=== PATIENT | male | born 1975 | race Hispanic/Latino ===

== ENCOUNTER 2017-10-21 10:03 | Emergency (ER) | payer SELFPAY ==
--- NOTE | 2017-10-21 12:10 | RAD ---
THREE VIEWS RIGHT ANKLE: 10/21/2017 COMPARISON: None. HISTORY: Ankle pain. FINDINGS: There is evidence of prior fracture status post surgical correction, with two screws traversing the m edial malleolus and two screws overlying the calcaneus. There is enthesophyte formation at the inser tion of the Achilles tendon and origin of the plantar aponeurosis. There is degenerative change invo lving the tibiotalar articulation and the subtalar joint with joint space narrowing and osteophyte fo rmation. Corticated osseous fragments are noted adjacent to the tip of the medial malleolus and late ral malleolus. No acute fracture or dislocation. IMPRESSION: Postoperative and degenerative change. No acute fracture or dislocation. POS: [facility]
[2017-10-21] MEDS ORDERED: Ibuprofen 800 MG TAB ONE (12:24)
== END 2017-10-21 12:31 | disposition home or self-care (01) ==
LOC: ERS 10:03
DX: S93.401A Sprain of unspecified ligament of right ankle, initial encounter (principal); F17.210 Nicotine dependence, cigarettes, uncomplicated; Z71.6 Tobacco abuse counseling; X50.1XXA Overexertion from prolonged static or awkward postures, initial encounter
CPT/HCPCS: 99406

== ENCOUNTER 2017-10-28 17:28 | Observation (INO) | payer SELFPAY ==
[2017-10-28 18:18] LABS: #Basophils 0.1 thou/uL (0.0-0.2); #Eosinphils 0.2 thou/uL (0.0-0.7); #Monocytes 0.6 thou/uL (0.11-0.59); #Neutrophils 3.8 thou/uL (1.40-6.50); %Basophils 1.1 % (0.0-1.0); %Eosinophils 3.3 % (0.0-10.0); %Lymphocytes 30.3 % (21.0-51.0); %Monocytes 9.4 % (0.0-10.0); Hemoglobin 17.9 g/dL (14.0-18.0); Mean Corpuscular HGB CONC 34.4 g/dL (32.0-36.0); Mean Corpuscular Hemoglobin 32.3 pg (27.0-31.0); Mean Corpuscular Volume 93.8 fl (80.0-94.0); Mean Platelet Volume 7.8 fL (7.4-10.4); Platelet Count 216 thou/uL (130-400); RBC Distribution Width 12.6 % (11.5-14.5); Red Blood Cell (RBC) Count 5.55 mill/uL (4.70-6.10); White Blood Cell (WBC) Count 6.7 thou/uL (4.8-10.8)
[2017-10-28 18:40] LABS: ALT (SGPT) 32 U/L (8-55); AST (SGOT) 21 U/L (5-34); Albumin 4.2 g/dL (3.5-5.0); Alkaline Phosphatase 84 U/L (40-150); Anion Gap 12 mmol/L (10-20); BUN (Urea Nitrogen) 11 mg/dL (8.9-20.6); Bilirubin, Total 1.2 mg/dL (0.2-1.2); CK (CPK) 187 U/L (30-200); Calc. Creatinine Clearance 0 mL/min (70-130); Calcium 9.1 mg/dL (7.8-10.44); Carbon Dioxide 27 mmol/L (22-29); Chloride 101 mmol/L (98-107); Estimated GFR-MDRD Greater than 90; Glucose 115 mg/dL (70-105); Lipase 18 U/L (8-78); Potassium 3.7 mmol/L (3.5-5.1); Protein, Total 7.2 g/dL (6.0-8.3); Sodium 136 mmol/L (136-145)
[2017-10-28 18:43] LABS: CKMB 1.4 ng/mL (0-6.6); Troponin I 0.015 ng/mL (< 0.028)
--- NOTE | 2017-10-28 19:07 | RAD ---
PA CHEST: HISTORY: Chest pain. FINDINGS: The lungs are well aerated and clear. No infiltrate or vascular congestion. The heart size is simi l. IMPRESSION: Unremarkable PA chest. POS: [facility]
[2017-10-28] MEDS ORDERED: Nitroglycerin 0.4 MG TAB (25 Tab Bottle) ONE (19:59)
[2017-10-28] MEDS ORDERED: Acetaminophen 500 MG TAB ONE (19:59)
[2017-10-28 22:40] VITALS: BMI 34.4
[2017-10-28 22:54] LABS: Troponin I Less than 0.010 ng/mL (< 0.028)
[2017-10-29 01:30] LABS: Troponin I Less than 0.010 ng/mL (< 0.028)
[2017-10-29] MEDS ORDERED: Acetaminophen 325 MG TAB PO PRN (01:30)
[2017-10-29] MEDS ORDERED: Enoxaparin Sodium 40 MG/0.4 ML SYRINGE SC SCH (01:30)
[2017-10-29] MEDS ORDERED: Famotidine 20 MG TAB PO SCH ×2 (01:30→09:00)
[2017-10-29] MEDS ORDERED: Ondansetron ODT 4 MG TAB PO PRN (01:30)
[2017-10-29] MEDS ORDERED: Ondansetron HCl/PF 4 MG/2 ML Vial IVP PRN (01:30)
[2017-10-29] MEDS ORDERED: HYDROcodone/Acetaminophen 5/325 mg Tablet PO PRN (01:30)
[2017-10-29] MEDS: Nitroglycerin 2% Ointment 1 INCH/1 GM Packet TOP SCH ×2 (01:52→11:16)
[2017-10-29 05:32] LABS: #Eosinphils 0.3 thou/uL (0.0-0.7); #Monocytes 0.5 thou/uL (0.11-0.59); #Neutrophils 2.1 thou/uL (1.40-6.50); %Basophils 0.9 % (0.0-1.0); %Eosinophils 5.1 % (0.0-10.0); %Monocytes 10.9 % (0.0-10.0); %Neutrophils 43.1 % (42.0-75.0); Hemoglobin 16.9 g/dL (14.0-18.0); Mean Corpuscular HGB CONC 35.2 g/dL (32.0-36.0); Mean Corpuscular Hemoglobin 32.5 pg (27.0-31.0); Mean Corpuscular Volume 92.3 fl (80.0-94.0); Mean Platelet Volume 7.9 fL (7.4-10.4); Platelet Count 188 thou/uL (130-400); RBC Distribution Width 12.6 % (11.5-14.5)
--- NOTE | 2017-10-29 05:48 | HP ---
DATE OF ADMISSION: 10/28/2017 TIME OF SERVICE: 2340 hours. PRIMARY CARE PHYSICIAN: None. CHIEF COMPLAINT: Chest pain. HISTORY OF PRESENT ILLNESS: Ms. Cortez is a 41-year-old Latin-[place] male with no known past me dical history who presents to the emergency department for evaluation of chest pain. Patient has had episodes over the last 4 months that have been very intermittent. He describes them as a left-sided substernal pressure that seems to come and go. He has noted no known exacerbating or alleviating factors. He has not had any movement of that pain. Today, he woke around 0600 hours and all day has had pain in the left chest that again feels like a p ressure or squeezing sensation as going to his left upper extremity. Today, has some finger tingling and lasted from the time that he woke up until he received nitroglycerin in the ER and all of the sy mptoms resolved. A workup was negative and we were called for further workup and evaluation. He denies any fevers or chills. He did have nausea when the pain began, but no vomiting. No diarrhe a, or constipation. He has had a cough off and on for several months with the seasonal allergies. N o shortness of breath and no palpitations. In the emergency department, biomarkers were unremarkable. EKG was normal. Chest x-ray was unremark able. We were called for admission. PAST MEDICAL HISTORY: None. PAST SURGICAL HISTORY: Includes; 1. Left jaw plate. 2. Left femur david. 3. Right arm david. 4. Left ankle pins x4. HOME MEDICATIONS: None. ALLERGIES: NKDA. REVIEW OF SYSTEMS: Significant for right lateral abdominal pain, but no GI bleeding. Pain comes and goes, intermittent, like his chest pain. FAMILY HISTORY: Significant for no members with coronary artery disease. His dad did have a cancer of unknown type, but is still alive in his late 60s to early 70s. He has a sister who has a congenit al murmur, but no other known medical issues along with history of diabetes and hypertension, is eduardo hudson, he is not sure how old she is. SOCIAL HISTORY: Significant for tobacco about 1/2 pack per weekend. Does drink social alcohol, maygabriela e 8 drinks over the weekend about 16 ounces beers. There is no history of IV drug use. He works as a packing tractor machine operator and is the significant other, one of our hospital workers here. PHYSICAL EXAMINATION: VITAL SIGNS: Temperature 98.5, pulse 109, blood pressure 155/113, respiratory 20, satting 97% on tristan m air. GENERAL: He is awake. He is alert. He is oriented x3, well-developed, well-nourished [place] n male appears to be in no distress. HEENT: Normocephalic, atraumatic. Pupils are equal, round, reactive to light bilaterally, mucous me mbranes are moist. He has normal mucous membranes. There are no lesions. Extraocular muscles are i ntact. NECK: Supple without lymphadenopathy, JVD, or thyromegaly. No carotid upstrokes. There are no brui ts. Neck has good range of motion. LUNGS: Clear to auscultation bilaterally. Good air movement. Symmetrical chest excursion. There a re no wheezes, no rales, no rhonchi. No prolonged expiratory phase. CARDIOVASCULAR: He is tachycardic, but regular. Normal S1 and S2. No S3 or S4. No audible murmurs . PMI is normal size and nondisplaced. ABDOMEN: Obese, nontender, nondistended. No hepatosplenomegaly. There is no rebound, rigidity, or guarding. Normoactive bowel sounds present in all 4 quadrants. Patient does have a Chávez's sign. We stopped his respiratory effort due to discomfort with deep inspiration. EXTREMITIES: No cyanosis, no clubbing, no edema. He has 2+ peripheral pulses in the dorsalis pedis, posterior tibial, and radial arteries bilaterally. SKIN: Warm, moist, and well perfused. He has multiple tattoos, but no rashes or lesions. NEUROLOGIC: Cranial nerves II through XII are grossly intact without any focal neurologic deficit. He has normal speech pattern, 5/5 strength in all 4 of his extremities. He has no coordination issue s. His gait is normal. MUSCULOSKELETAL: Normal to inspection. Large joints appeared normal. There is no inflammation. Go od range of motion and no palpable effusions. LABORATORY AND DIAGNOSTIC DATA: Sodium 136, potassium 3.7, chloride 101, bicarb 27, BUN 11, creatini ne 0.84, and glucose 115. Liver functions are completely within normal limits. CBC showed a white c ount of 6.7, hemoglobin 17.9, hematocrit of 52.1, and platelet count is 216,000. CK-MB is normal at 1.4 and troponin I was 0.015 with repeat of less than 0.010. Chest x-ray showed no acute cardiopulmo nary disease. ASSESSMENT AND PLAN: 1. Chest pain. I feel this is at low risk. He has no comorbid factors, he has no family history, n egative EKG, and normal biomarkers. We will get one more set and get a nuclear stress test to comple tely exclude. 2. Right upper quadrant pain: The patient did have a Chávez sign. We will get an abnormal liver fu nctions. We will get an abdominal ultrasound. 3. Elevated blood pressure. Patient is anxious about being here. He will be getting nitro paste an yways. We will watch his blood pressure closely and watch him on telemetry. 4. Tobacco abuse. The patient does smoke a half pack per weekend. We will do tobacco counseling. I did encourage him to quit.
[2017-10-29 05:52] LABS: CKMB 1.2 ng/mL (0-6.6); Troponin I Less than 0.010 ng/mL (< 0.028)
[2017-10-29 05:58] LABS: ALT (SGPT) 27 U/L (8-55); AST (SGOT) 17 U/L (5-34); Albumin 3.7 g/dL (3.5-5.0); Alkaline Phosphatase 71 U/L (40-150); Anion Gap 11 mmol/L (10-20); BUN (Urea Nitrogen) 12 mg/dL (8.9-20.6); Bilirubin, Total 1.3 mg/dL (0.2-1.2); Calc. Creatinine Clearance 173 mL/min (70-130); Calcium 8.6 mg/dL (7.8-10.44); Carbon Dioxide 26 mmol/L (22-29); Cardiac Risk 4.6 (Less than 4.5); Chloride 101 mmol/L (98-107); Cholesterol 174 mg/dl (< 200 Desired); Estimated GFR-MDRD Greater than 90; Globulin 2.4 g/dL (2.4-3.5); Glucose 87 mg/dL (70-105); HDL Cholesterol 38 mg/dL (>60 Neg Risk); LDL Cholesterol, Calculated 94 mg/dL; Potassium 3.5 mmol/L (3.5-5.1); Protein, Total 6.1 g/dL (6.0-8.3); Sodium 134 mmol/L (136-145); Triglycerides 209 mg/dL (Less than 150)
--- NOTE | 2017-10-29 07:59 | ULT ---
GALLBLADDER ULTRASOUND: History: Chest pain. Comparison: None. Technique: Utilizing a multihertz transducer, sonographic imaging of the right upper quadrant was per formed in the longitudinal and transverse plane. FINDINGS: Hepatic parenchyma has a normal echotexture. No hepatic masses or intrahepatic biliary dilatation. Th e contour of the hepatic margin is maintained. Right hepatic lobe measures 17.3 cm. Pancreas is poorly defined due to overlying bowel gas. Grossly, the head and proximal pancreatic body has a normal echotexture. Main portal vein is patent. Appropriate direction of flow. Right kidney has a normal cortical echotexture. No hydronephrosis. Right kidney measures 10.5 x 4.3 x 4.4 cm. In the gallbladder, there are small stones in the neck of the gallbladder. Gallbladder wall is not th ickened. No pericholecystic fluid. Negative Chávez's sign. Common bile duct diameter is 0.4 cm. IMPRESSION: Sonographic evidence of cholelithiasis without evidence of cholecystitis. POS: [facility]
[2017-10-29] MEDS ORDERED: Aspirin 325 mg Enteric Coated Tablet PO SCH (09:00)
--- NOTE | 2017-10-29 09:50 | PDOC.EVN ---
Event Note - Event Note Event Note: 41 M admitted for chest and RUQ pain. Work up for chest pain negative so far. Abdominal US shows cholelithiasis withoug evidence of cholecystitis. Exercise stress test scheduled. If negative and pain well controlled, will be discharged and referred to General Surgery for outpatient elective LAP cholecystectomy.
--- NOTE | 2017-10-29 12:20 | NM ---
NUCLEAR MEDICINE CARDIAC PERFUSION EXAMINATION WITH EJECTION FRACTION: HISTORY: 41-year-old male with chest pain. Patient is a smoker. TECHNIQUE: A nuclear medicine cardiac stress test was performed. Rest images were obtained using 11.1 mCi of alexis hnetium-99m sestamibi. Stress images were obtained using 31.9 mCi of technetium-99m sestamibi and Dayana nosine. FINDINGS: Tomographic images show no fixed or reversible perfusion defects. Gated images show normal wall motio n with an ejection fraction of 68% EDV: 102 ml LHR: 0.4 TID: 1.15 IMPRESSION: No evidence of ischemia. POS: [facility]
[2017-10-29 12:56] LABS: CKMB 1.2 ng/mL (0-6.6); Troponin I Less than 0.010 ng/mL (< 0.028)
[2017-10-29 15:43] VITALS: BP 136/72; TEMP 97.9
[2017-10-29] MEDS ORDERED: ADENOSINE 60 MG/20 ML VIAL ONE (16:43)
--- NOTE | 2017-10-30 01:47 | DIS ---
DATE OF ADMISSION: 10/28/2017 DATE OF DISCHARGE: 10/29/2017 DISCHARGE DIAGNOSES: 1. Noncardiac chest pain. 2. Hyperlipidemia. 3. Cholelithiasis. HOSPITAL COURSE/HISTORY OF PRESENT ILLNESS: Mr. Cortez is a 41-year-old male with no previous pas t medical history who presented to the emergency room for chest pain, which has been intermittent for the past 4 months, described it as left-sided substernal chest pain/pressure. There was no aggravat ing or alleviating factors. No pleuritic in nature. At around 6:00 a.m. on the day of presentation, he had pain and decided to present to the hospital as he felt it radiated to his left upper extremit y and had some tingling of his fingers. He received nitroglycerin in the emergency room with resolut ion of his pain. Workup was negative in the emergency room and Internal Medicine was consulted to fu rther evaluate his pain. His troponin was trended and was negative. He had a stress test, which was also negative. In addition, he complained of right upper quadrant pain and an ultrasound was done s howed cholelithiasis without evidence of cholecystitis. He had no leukocytosis, fever, or any other suggestion of cholecystitis. His chest pain resolved as well as his abdominal pain. He was instruct ed to follow up with his primary care physician within 1 week of discharge for blood pressure check a nd repeat labs. He is also to get a referral to General Surgery for possible elective cholecystectom y. His lipid profile revealed elevated triglycerides and he was started on lovastatin before dischar ge. DISCHARGE MEDICATIONS: Lovastatin 20 mg daily. PHYSICAL EXAMINATION: He was examined on the day of discharge. VITAL SIGNS: Temperature 97.9 degree Fahrenheit, pulse rate 64, respiratory rate 20, oxygen saturati on 96% on room air, blood pressure 136/72. GENERAL: Not in acute distress, lying comfortably in bed. HEENT: Normocephalic, atraumatic. Not pale, anicteric. Moist mucous membranes. Respiratory vesicu lar breath sounds bilaterally, no wheezes or rales. CARDIOVASCULAR: Regular rate and rhythm, S1 and S2 only. No murmurs, rubs, or gallops. ABDOMEN: Soft, nontender, nondistended. Bowel sounds present. No organomegaly. MUSCULOSKELETAL: No edema. SKIN: Warm, dry, well-perfused. No rashes or lesions. PSYCHIATRIC: Normal mood and affect. NEUROLOGIC: Alert and well oriented to time, place and person. No focal deficits. SIGNIFICANT LABORATORY DATA: Sodium 134, potassium 3.5, chloride 101, carbon dioxide 26, anion gap 1 1, BUN 12, creatinine 0.7, glucose 87, calcium 8.6. Hematology: WBC 5.0, hemoglobin 16.9, platelet count 188. IMAGING: Chest x-ray unremarkable. Nuclear stress test, no reversible ischemia. Abdomen ultrasonog raphic evidence of cholelithiasis without evidence of cholecystitis. PROCEDURES: Stress test. CONSULTS: None. CONDITION AT DISCHARGE: Stable and improved. DIET: Heart healthy. ACTIVITY: To resume as tolerated. CARE GOALS: Advised to follow up with primary care physician within 1 week of discharge. He is also to get an appointment to General Surgery for possible elective cholecystectomy. Discharge time 65 minutes including chart review and documentation.
--- NOTE | 2017-11-03 00:26 | EKG ---
Test Reason : Blood Pressure : / mmHG Vent. Rate : 110 BPM Atrial Rate : 110 BPM P-R Int : 154 ms QRS Dur : 096 ms QT Int : 316 ms P-R-T Axes : 058 -26 050 degrees QTc Int : 427 ms Sinus tachycardia Otherwise normal ECG Confirmed by ANDREW JARRELL ([id number]), movie editor JUSTEN ESCOBAR ([id number] on 11/03/2017 12:25:14 AM Referred By: Confirmed By:ANDREW JARRELL
== END 2017-10-29 18:14 | disposition home or self-care (01) ==
LOC: ERS 17:28 → 2SW 21:39
PROVIDERS: ADMIT Internal Medicine Infectious Disease; ATTEND Internal Medicine Infectious Disease
DX: R07.89 Other chest pain (principal); E78.5 Hyperlipidemia, unspecified; K80.20 Calculus of gallbladder without cholecystitis without obstruction; F17.210 Nicotine dependence, cigarettes, uncomplicated; R10.11 Right upper quadrant pain; R03.0 Elevated blood-pressure reading, without diagnosis of hypertension; Z98.890 Other specified postprocedural states
CPT/HCPCS: 36415; 71045; 76705; 78452; 80053; 80061; 82550; 82553; 83690; 84484; 85025; 93005; 93017; 96372; 99406; A9500; G0378; J0153; J1650

== ENCOUNTER 2018-07-15 08:09 | Emergency (ER) | payer OTHER, SELFPAY ==
[2018-07-15] MEDS ORDERED: Ondansetron ODT 8 MG TAB ONE (08:19)
[2018-07-15 10:36] LABS: #Basophils 0.1 thou/uL (0.0-0.2); #Eosinphils 0.2 thou/uL (0.0-0.7); #Lymphocytes 1.1 thou/uL (1.20-3.40); #Monocytes 0.5 thou/uL (0.11-0.59); #Neutrophils 2.7 thou/uL (1.40-6.50); %Basophils 1.5 % (0.0-1.0); %Eosinophils 3.4 % (0.0-10.0); %Lymphocytes 23.5 % (21.0-51.0); %Monocytes 11.7 % (0.0-10.0); %Neutrophils 59.8 % (42.0-75.0); Hemoglobin 18.9 g/dL (14.0-18.0); Mean Corpuscular HGB CONC 34.5 g/dL (32.0-36.0); Mean Corpuscular Volume 95.8 fL (78.0-98.0); Mean Platelet Volume 8.2 fL (7.4-10.4); Platelet Count 195 thou/uL (130-400); RBC Distribution Width 12.2 % (11.5-14.5); Red Blood Cell (RBC) Count 5.71 mill/uL (4.70-6.10); White Blood Cell (WBC) Count 4.5 thou/uL (4.8-10.8)
[2018-07-15 10:52] LABS: ALT (SGPT) 28 U/L (8-55); AST (SGOT) 32 U/L (5-34); Albumin 4.2 g/dL (3.5-5.0); Alkaline Phosphatase 84 U/L (40-150); Anion Gap 12 mmol/L (10-20); BUN (Urea Nitrogen) 8 mg/dL (8.9-20.6); Calc. Creatinine Clearance 0 mL/min (70-130); Calcium 9.8 mg/dL (7.8-10.44); Carbon Dioxide 25 mmol/L (22-29); Chloride 98 mmol/L (98-107); Estimated GFR-MDRD Greater than 90; Globulin 3.1 g/dL (2.4-3.5); Glucose 93 mg/dL (70-105); Potassium 4.1 mmol/L (3.5-5.1); Protein, Total 7.3 g/dL (6.0-8.3); Sodium 131 mmol/L (136-145)
== END 2018-07-15 11:37 | disposition home or self-care (01) ==
LOC: ERS 08:09
DX: K52.9 Noninfective gastroenteritis and colitis, unspecified (principal); F17.210 Nicotine dependence, cigarettes, uncomplicated
CPT/HCPCS: 36415; 80053; 85025; 99284

== ENCOUNTER 2018-07-22 11:34 | Emergency (ER) | payer OTHER ==
[~2018-07-22 11:34] MED LIST: Iopamidol 370 76% 100 ML VIAL ONE
[2018-07-22] MEDS ORDERED: Dicyclomine 20 MG TAB ONE (11:57)
[2018-07-22 12:20] LABS: Band 1 % (5-11); Eosinophils 3 % (0-10); Hemoglobin 17.3 g/dL (14.0-18.0); Lymphocytes 18 % (21-51); MDiff Complete? YES; Mean Corpuscular HGB CONC 33.7 g/dL (32.0-36.0); Mean Corpuscular Hemoglobin 31.3 pg (27.0-31.0); Mean Corpuscular Volume 92.8 fL (78.0-98.0); Mean Platelet Volume 9.9 fL (7.4-10.4); Monocytes 7 % (0-10); Neutrophil 62 % (42-75); PLT Morphology Comment Appears Adequate; Platelet Count 164 thou/uL (130-400); RBC Distribution Width 10.9 % (11.5-14.5); Reactive Lymphocytes 8 % (0-10); Red Blood Cell (RBC) Count 5.53 mill/uL (4.70-6.10); White Blood Cell (WBC) Count 4.9 thou/uL (4.8-10.8)
[2018-07-22 12:27] LABS: ALT (SGPT) 36 U/L (8-55); AST (SGOT) 20 U/L (5-34); Albumin 3.9 g/dL (3.5-5.0); Alkaline Phosphatase 75 U/L (40-150); Anion Gap 14 mmol/L (10-20); BUN (Urea Nitrogen) 6 mg/dL (8.9-20.6); Calc. Creatinine Clearance 0 mL/min (70-130); Calcium 8.8 mg/dL (7.8-10.44); Carbon Dioxide 24 mmol/L (22-29); Chloride 103 mmol/L (98-107); Estimated GFR-MDRD Greater than 90; Globulin 2.6 g/dL (2.4-3.5); Glucose 114 mg/dL (70-105); Lipase 19 U/L (8-78); Potassium 3.7 mmol/L (3.5-5.1); Protein, Total 6.5 g/dL (6.0-8.3); Sodium 137 mmol/L (136-145)
[2018-07-22 13:09] LABS: Bilirubin Negative (Negative); Blood, Urine Negative (Negative); Clarity Clear (Clear); Glucose, Urine (Dipstick) 250 mg/dL (Negative); Leukocyte Negative (Negative); Nitrite Negative (Negative); Protein, Urine (Dipstick) Negative (Neg-Trace); Urobilinogen 0.2 mg/dL (0.2-1.0); pH, Urine 7.5 (5.0-9.0)
--- NOTE | 2018-07-22 14:24 | CT ---
CT ABDOMEN AND PELVIS WITH IV CONTRAST: Date: 07/22/18 HISTORY: Right-sided abdominal pain. FINDINGS: Lung bases are clear. The liver, spleen, pancreas, adrenal glands, and kidneys are normal. No calcifi ed gallstones are seen. No free air, free fluid, or lymphadenopathy is noted in the abdomen or pelvis . There are small bilateral inguinal herniae. The small bowel loops are not abnormally dilated. A nor mal appearing appendix is seen. There are postop changes and metallic hardware in the left proximal f emur. IMPRESSION: No acute process. POS: [facility]
== END 2018-07-22 13:55 | disposition home or self-care (01) ==
LOC: SCSER 11:34
DX: R10.11 Right upper quadrant pain (principal); F17.210 Nicotine dependence, cigarettes, uncomplicated
CPT/HCPCS: 74177; 80053; 81003; 83690; 85025

== ENCOUNTER 2021-01-17 04:29 | Emergency (ER) | payer SELFPAY ==
[2021-01-17] MEDS ORDERED: Dexamethasone 10 MG/ML VIAL ONE (06:58)
[2021-01-17] MEDS ORDERED: Famotidine/PF 20 mg/2ml Vial ONE ×2 (07:10→07:21)
[2021-01-17] MEDS ORDERED: diphenhydrAMINE 50 MG/ML VIAL ONE (07:10)
[2021-01-17] MEDS ORDERED: Aspirin Chewable 81 MG TAB ONE (07:20)
[2021-01-17 07:41] LABS: #Eosinphils 0.2 thou/uL (0.0-0.7); #Lymphocytes 1.4 thou/uL (1.20-3.40); #Monocytes 0.5 thou/uL (0.11-0.59); #Neutrophils 3.7 thou/uL (1.40-6.50); %Basophils 0.7 % (0.0-1.0); %Eosinophils 3.2 % (0.0-10.0); %Lymphocytes 24.3 % (21.0-51.0); %Neutrophils 62.9 % (42.0-75.0); Hemoglobin 16.9 g/dL (14.0-18.0); Mean Corpuscular HGB CONC 33.8 g/dL (32.0-36.0); Mean Corpuscular Hemoglobin 32.4 pg (27.0-31.0); Mean Corpuscular Volume 95.8 fL (78.0-98.0); Mean Platelet Volume 8.1 fL (7.4-10.4); Platelet Count 209 thou/uL (130-400); RBC Distribution Width 11.9 % (11.5-14.5); Red Blood Cell (RBC) Count 5.23 mill/uL (4.70-6.10); White Blood Cell (WBC) Count 5.9 thou/uL (4.8-10.8)
[2021-01-17 08:05] LABS: ALT (SGPT) 52 U/L (8-55); AST (SGOT) 27 U/L (5-34); Alkaline Phosphatase 98 U/L (40-110); Anion Gap 13 mmol/L (10-20); BUN (Urea Nitrogen) 6 mg/dL (8.9-20.6); Bilirubin, Total 0.7 mg/dL (0.2-1.2); Calc. Creatinine Clearance 0 mL/min (70-130); Calcium 9.7 mg/dL (7.8-10.44); Carbon Dioxide 26 mmol/L (22-29); Chloride 98 mmol/L (98-107); Globulin 3.5 g/dL (2.4-3.5); Glucose 130 mg/dL (70-105); Potassium 3.6 mmol/L (3.5-5.1); Protein, Total 7.5 g/dL (6.0-8.3); Sodium 133 mmol/L (136-145)
[2021-01-17] MEDS ORDERED: Lorazepam 2 MG/ML VIAL ONE (09:06)
[2021-01-17] MEDS ORDERED: Iopamidol-370 76% 500 ML 1 ML ONE (09:42)
== END 2021-01-17 10:54 | disposition home or self-care (01) ==
LOC: ERS 04:29
DX: T78.40XA Allergy, unspecified, initial encounter (principal); I10 Essential (primary) hypertension; R06.02 Shortness of breath; Z86.73 Personal history of transient ischemic attack (TIA), and cerebral infarction without residual deficits; F17.210 Nicotine dependence, cigarettes, uncomplicated
CPT/HCPCS: 70491; 71045; 80053; 83880; 84484; 85025; 87081; 87430; 93005; 96374; 96375; J1100; J1200; J2060; Q9967; S0028

== ENCOUNTER 2021-01-30 21:57 | Emergency (ER) | payer SELFPAY ==
[2021-01-30] MEDS ORDERED: diphenhydrAMINE 50 MG/ML VIAL ONE (22:37)
== END 2021-01-30 23:29 | disposition home or self-care (01) ==
LOC: ERS 21:57
DX: R60.0 Localized edema (principal); T78.1XXA Other adverse food reactions, not elsewhere classified, initial encounter; F17.210 Nicotine dependence, cigarettes, uncomplicated; Z86.73 Personal history of transient ischemic attack (TIA), and cerebral infarction without residual deficits; Z79.52 Long term (current) use of systemic steroids; Z79.899 Other long term (current) drug therapy
CPT/HCPCS: 96372; 99283; J1200

== ENCOUNTER 2021-06-13 01:10 | Emergency (ER) | payer OTHER ==
[2021-06-13] MEDS ORDERED: Aspirin 81 mg Enteric Coated Tablet ONE (01:53)
[2021-06-13 01:58] LABS: #Eosinphils 0.1 thou/uL (0.0-0.7); #Lymphocytes 1.4 thou/uL (1.20-3.40); #Monocytes 0.7 thou/uL (0.11-0.59); #Neutrophils 3.4 thou/uL (1.40-6.50); %Basophils 0.4 % (0.0-1.0); %Eosinophils 1.4 % (0.0-10.0); %Lymphocytes 25.1 % (21.0-51.0); %Monocytes 12.5 % (0.0-10.0); %Neutrophils 60.6 % (42.0-75.0); Mean Corpuscular HGB CONC 35.8 g/dL (32.0-36.0); Mean Corpuscular Hemoglobin 33.4 pg (27.0-31.0); Mean Corpuscular Volume 93.3 fL (78.0-98.0); Mean Platelet Volume 7.9 fL (7.4-10.4); Platelet Count 194 thou/uL (130-400); RBC Distribution Width 11.7 % (11.5-14.5); Red Blood Cell (RBC) Count 5.09 mill/uL (4.70-6.10); White Blood Cell (WBC) Count 5.6 thou/uL (4.8-10.8)
[2021-06-13 02:15] LABS: ALT (SGPT) 45 U/L (8-55); AST (SGOT) 32 U/L (5-34); Albumin 4.2 g/dL (3.5-5.0); Alkaline Phosphatase 83 U/L (40-110); Anion Gap 15 mmol/L (10-20); BUN (Urea Nitrogen) 7 mg/dL (8.9-20.6); Bilirubin, Total 1.3 mg/dL (0.2-1.2); Calc. Creatinine Clearance 0 mL/min (70-130); Calcium 9.2 mg/dL (7.8-10.44); Carbon Dioxide 25 mmol/L (22-29); Chloride 100 mmol/L (98-107); Globulin 3.2 g/dL (2.4-3.5); Glucose 92 mg/dL (70-105); Lipase 13 U/L (8-78); Potassium 3.3 mmol/L (3.5-5.1); Protein, Total 7.4 g/dL (6.0-8.3); Sodium 137 mmol/L (136-145)
[2021-06-13] MEDS ORDERED: Iopamidol 370 76% 100 ML VIAL ONE (11:27)
== END 2021-06-13 05:35 | disposition home or self-care (01) ==
LOC: ERS 01:10
DX: R07.89 Other chest pain (principal); R06.02 Shortness of breath; E11.9 Type 2 diabetes mellitus without complications; I10 Essential (primary) hypertension; Z86.73 Personal history of transient ischemic attack (TIA), and cerebral infarction without residual deficits; Z87.891 Personal history of nicotine dependence
CPT/HCPCS: 36415; 71045; 71275; 80053; 83690; 84484; 85025; 85379; 93005; Q9967

== ENCOUNTER 2022-02-22 11:08 | Emergency (ER) | payer OTHER, SELFPAY | END 2022-02-22 11:54 | disposition home or self-care (01) | LOC: ERS 11:08 | DX: J06.9 Acute upper respiratory infection, unspecified (principal) | CPT/HCPCS: 99283 ==

== ENCOUNTER 2022-10-01 08:18 | Emergency (ER) | payer OTHER, SELFPAY ==
[2022-10-01] MEDS ORDERED: Ketorolac Tromethamine 30 MG/ML VIAL ONE (09:32)
== END 2022-10-01 09:20 | disposition home or self-care (01) ==
LOC: ERS 08:18
DX: H66.93 Otitis media, unspecified, bilateral (principal)
CPT/HCPCS: 99282; J1885